=== PATIENT | male | born 2000 | race Caucasian/White ===

== ENCOUNTER 2022-01-02 23:16 | Emergency (ER) | payer OTHER ==
[~2022-01-02] VITALS: Ht 172.7 cm; Wt 68.2 kg
[2022-01-02 23:21] VITALS: TEMP 97.9
[2022-01-03 00:07] VITALS: BP 131/84; PULSE 89
== END 2022-01-03 00:13 | disposition left against medical advice (07) ==
LOC: COL.ER 23:16
DX: S01.532A Puncture wound without foreign body of oral cavity, initial encounter (principal); M25.572 Pain in left ankle and joints of left foot; M25.571 Pain in right ankle and joints of right foot; W13.0XXA Fall from, out of or through balcony, initial encounter